=== PATIENT | female | born 1960 | race Caucasian/White ===

== ENCOUNTER 2016-09-12 10:44 | Emergency (ER) | payer OTHER | END 2016-09-12 17:52 | disposition critical access hospital (66) | LOC: ER 10:44 | DX: R06.02 Shortness of breath (principal); R60.1 Generalized edema; I50.9 Heart failure, unspecified; F32.9 Major depressive disorder, single episode, unspecified; F41.9 Anxiety disorder, unspecified; I16.9 Hypertensive crisis, unspecified; I12.9 Hypertensive chronic kidney disease with stage 1 through stage 4 chronic kidney disease, or unspecified chronic kidney disease; N18.9 Chronic kidney disease, unspecified; K21.9 Gastro-esophageal reflux disease without esophagitis; Z90.49 Acquired absence of other specified parts of digestive tract; Z79.899 Other long term (current) drug therapy; Z79.82 Long term (current) use of aspirin; Z79.4 Long term (current) use of insulin | CPT/HCPCS: 36415; 51702; 96365; 96366; 96375; 96376 ==

== ENCOUNTER 2016-09-12 11:39 | Inpatient (IN) | payer OTHER | END 2016-09-20 13:05 | disposition swing bed (61) | DRG 291 | LOC: ER 11:39 → ICU 17:53 | PROVIDERS: ADMIT Internal Medicine | DX: I13.0 Hypertensive heart and chronic kidney disease with heart failure and stage 1 through stage 4 chronic kidney disease, or unspecified chronic kidney disease (principal); I50.33 Acute on chronic diastolic (congestive) heart failure; G93.40 Encephalopathy, unspecified; I16.1 Hypertensive emergency; N18.4 Chronic kidney disease, stage 4 (severe); B37.49 Other urogenital candidiasis; Z68.43 Body mass index [BMI] 50.0-59.9, adult; F41.9 Anxiety disorder, unspecified; F32.9 Major depressive disorder, single episode, unspecified; E78.5 Hyperlipidemia, unspecified; E83.42 Hypomagnesemia; E87.6 Hypokalemia; G47.33 Obstructive sleep apnea (adult) (pediatric); E66.01 Morbid (severe) obesity due to excess calories; R60.1 Generalized edema; E11.9 Type 2 diabetes mellitus without complications; E03.9 Hypothyroidism, unspecified; K21.9 Gastro-esophageal reflux disease without esophagitis; M10.9 Gout, unspecified; Z90.49 Acquired absence of other specified parts of digestive tract; Z79.84 Long term (current) use of oral hypoglycemic drugs; Z79.82 Long term (current) use of aspirin; Z79.4 Long term (current) use of insulin; Z79.899 Other long term (current) drug therapy; Z87.891 Personal history of nicotine dependence; Z82.49 Family history of ischemic heart disease and other diseases of the circulatory system; Z83.3 Family history of diabetes mellitus; M35.3 Polymyalgia rheumatica; M25.50 Pain in unspecified joint; M54.5 Low back pain; G89.29 Other chronic pain | CPT/HCPCS: 36415; 87502; 90653; 97162-GP; 97166; J0360; J1644; J1940 ==

== ENCOUNTER 2016-09-20 08:26 | Inpatient (IN) | payer OTHER ==
[2016-09-24] MEDS ORDERED: NOVOLOG1 UNIT/0.0 SQ ×2 (11:14)
[2016-09-24] MEDS ORDERED: ZOLOFT50 MG PO (11:14)
[2016-09-24] MEDS ORDERED: CLONIDINE HCL0.1 MG PO (11:15)
[2016-09-24] MEDS ORDERED: LANTUS100 UNIT/1 SQ (11:15)
[2016-09-24] MEDS ORDERED: GLUCOTROL10 MG PO (11:15)
[2016-09-24] MEDS ORDERED: COREG25 MG PO (11:15)
[2016-09-24] MEDS ORDERED: SYNTHROID200 MCG PO (11:16)
[2016-09-24] MEDS ORDERED: MIRTAZAPINE15 MG PO (11:16)
[2016-09-24] MEDS ORDERED: NORVASC10 MG PO (11:16)
[2016-09-24] MEDS ORDERED: ALLOPURINOL300 MG PO (11:16)
[2016-09-24] MEDS ORDERED: ZOFRAN4 MG PO (11:17)
[2016-09-24] MEDS ORDERED: ZETIA10 MG PO (11:17)
[2016-09-24] MEDS ORDERED: FISH OIL 1,0001 EAC3 PO (11:17)
[2016-09-24] MEDS ORDERED: ASPIRIN EC325 MG PO (11:18)
[2016-09-24] MEDS ORDERED: ALDACTONE100 MG PO (11:18)
[2016-09-24] MEDS ORDERED: ACETAMINOPHEN325 MG PO (11:18)
[2016-09-24] MEDS ORDERED: HYDRALAZINE HC100 MG PO (11:19)
[2016-09-24] MEDS ORDERED: CRESTOR10 MG PO (11:19)
[2016-09-24] MEDS ORDERED: DEMADEX20 MG PO (11:20)
[2016-09-24] MEDS ORDERED: POLYETHYLENE GL17 GM PO (11:20)
== END 2016-09-24 13:37 | disposition home or self-care (01) | DRG 291 ==
LOC: SWI 08:26
PROVIDERS: ADMIT Internal Medicine
DX: I13.0 Hypertensive heart and chronic kidney disease with heart failure and stage 1 through stage 4 chronic kidney disease, or unspecified chronic kidney disease (principal); I50.33 Acute on chronic diastolic (congestive) heart failure; N18.4 Chronic kidney disease, stage 4 (severe); Z68.42 Body mass index [BMI] 45.0-49.9, adult; E11.22 Type 2 diabetes mellitus with diabetic chronic kidney disease; E03.9 Hypothyroidism, unspecified; E66.9 Obesity, unspecified; K21.9 Gastro-esophageal reflux disease without esophagitis; F41.9 Anxiety disorder, unspecified; F32.9 Major depressive disorder, single episode, unspecified; M10.9 Gout, unspecified; Z90.49 Acquired absence of other specified parts of digestive tract; Z79.82 Long term (current) use of aspirin; Z79.84 Long term (current) use of oral hypoglycemic drugs; Z79.4 Long term (current) use of insulin; Z79.899 Other long term (current) drug therapy; Z82.49 Family history of ischemic heart disease and other diseases of the circulatory system; Z83.3 Family history of diabetes mellitus; G47.33 Obstructive sleep apnea (adult) (pediatric); E83.42 Hypomagnesemia; E87.70 Fluid overload, unspecified; E78.5 Hyperlipidemia, unspecified
CPT/HCPCS: 97162-GP; J1644

== ENCOUNTER 2016-09-30 16:13 | Inpatient (IN) | payer OTHER ==
[~2016-09-30 16:13] MED LIST: ACETAMINOPHEN325 MG PO; ALDACTONE100 MG PO; ALLOPURINOL300 MG PO; ASPIRIN EC325 MG PO; CLONIDINE HCL0.1 MG PO; COREG25 MG PO; CRESTOR10 MG PO; DEMADEX20 MG PO; FISH OIL 1,0001 EAC3 PO; GLUCOTROL10 MG PO; HYDRALAZINE HC100 MG PO; LANTUS100 UNIT/1 SQ; MIRTAZAPINE15 MG PO; NORVASC10 MG PO; NOVOLOG1 UNIT/0.0 SQ; POLYETHYLENE GL17 GM PO; SYNTHROID200 MCG PO; ZETIA10 MG PO; ZOFRAN4 MG PO; ZOLOFT50 MG PO
[2016-10-05] MEDS ORDERED: ZOLOFT100 MG PO (10:06)
[2016-10-05] MEDS ORDERED: NOVOLOG1 UNIT/0.0 SQ ×2 (10:06)
[2016-10-05] MEDS ORDERED: GLUCOTROL10 MG PO (10:07)
[2016-10-05] MEDS ORDERED: COREG25 MG PO (10:11)
[2016-10-05] MEDS ORDERED: CATAPRES0.1 MG PO (10:11)
[2016-10-05] MEDS ORDERED: LANTUS100 UNIT/1 SQ (10:11)
[2016-10-05] MEDS ORDERED: ALLOPURINOL300 MG PO (10:12)
[2016-10-05] MEDS ORDERED: SYNTHROID200 MCG PO (10:13)
[2016-10-05] MEDS ORDERED: ZOFRAN4 MG PO (10:14)
[2016-10-05] MEDS ORDERED: ZETIA10 MG PO (10:14)
[2016-10-05] MEDS ORDERED: ACETAMINOPHEN325 MG PO (10:14)
[2016-10-05] MEDS ORDERED: CRESTOR10 MG PO (10:15)
[2016-10-05] MEDS ORDERED: HYDRALAZINE HC100 MG PO (10:15)
[2016-10-05] MEDS ORDERED: ASPIRIN EC81 MG PO (10:15)
[2016-10-05] MEDS ORDERED: DEMADEX20 MG PO (10:16)
[2016-10-05] MEDS ORDERED: POLYETHYLENE GL17 GM PO (10:16)
[2016-10-05] MEDS ORDERED: VISTARIL25 MG PO (10:16)
[2016-10-05] MEDS ORDERED: PHENERGAN25 MG RC (10:17)
[2016-10-05] MEDS ORDERED: K-DUR20 MEQ PO (10:17)
[2016-10-05] MEDS ORDERED: CARAFATE1 GM PO (10:17)
[2016-10-05] MEDS ORDERED: MAGOX 400400 MG PO (10:18)
[2016-10-05] MEDS ORDERED: REGLAN10 MG PO (10:18)
[2016-10-05] MEDS ORDERED: PROTONIX40 MG PO (10:26)
[2016-10-05] MEDS ORDERED: NORVASC10 MG PO (10:26)
[2016-10-05] MEDS ORDERED: HYDROCHLOROTHIA25 MG PO (10:27)
== END 2016-10-05 12:36 | disposition home or self-care (01) | DRG 291 ==
LOC: ER 16:13 → MED 19:41
PROVIDERS: ADMIT Internal Medicine
DX: I13.0 Hypertensive heart and chronic kidney disease with heart failure and stage 1 through stage 4 chronic kidney disease, or unspecified chronic kidney disease (principal); I50.33 Acute on chronic diastolic (congestive) heart failure; I16.1 Hypertensive emergency; N18.4 Chronic kidney disease, stage 4 (severe); Z68.42 Body mass index [BMI] 45.0-49.9, adult; A08.4 Viral intestinal infection, unspecified; E86.0 Dehydration; E11.22 Type 2 diabetes mellitus with diabetic chronic kidney disease; K29.70 Gastritis, unspecified, without bleeding; E11.43 Type 2 diabetes mellitus with diabetic autonomic (poly)neuropathy; K31.84 Gastroparesis; R74.8 Abnormal levels of other serum enzymes; F41.9 Anxiety disorder, unspecified; F32.9 Major depressive disorder, single episode, unspecified; D35.00 Benign neoplasm of unspecified adrenal gland; E03.9 Hypothyroidism, unspecified; E66.9 Obesity, unspecified; K21.9 Gastro-esophageal reflux disease without esophagitis; M10.9 Gout, unspecified; G47.33 Obstructive sleep apnea (adult) (pediatric); Z90.49 Acquired absence of other specified parts of digestive tract; Z82.49 Family history of ischemic heart disease and other diseases of the circulatory system; Z83.3 Family history of diabetes mellitus; R11.2 Nausea with vomiting, unspecified; E87.6 Hypokalemia; Z79.84 Long term (current) use of oral hypoglycemic drugs; Z79.82 Long term (current) use of aspirin; Z79.4 Long term (current) use of insulin; Z79.899 Other long term (current) drug therapy
CPT/HCPCS: 36415; 83835; 93976; 97162-GP; 97165; J0360; J1644; J2060; J2550; J2765

== ENCOUNTER 2016-09-30 16:13 | Emergency (ER) | payer OTHER | END 2016-09-30 19:40 | disposition critical access hospital (66) | LOC: ER 16:13 | DX: I13.0 Hypertensive heart and chronic kidney disease with heart failure and stage 1 through stage 4 chronic kidney disease, or unspecified chronic kidney disease (principal); N18.9 Chronic kidney disease, unspecified; I50.9 Heart failure, unspecified; R11.2 Nausea with vomiting, unspecified; E11.22 Type 2 diabetes mellitus with diabetic chronic kidney disease; K21.9 Gastro-esophageal reflux disease without esophagitis; F41.9 Anxiety disorder, unspecified; E66.9 Obesity, unspecified; Z68.42 Body mass index [BMI] 45.0-49.9, adult; Z79.899 Other long term (current) drug therapy; Z79.4 Long term (current) use of insulin; Z79.82 Long term (current) use of aspirin; Z90.49 Acquired absence of other specified parts of digestive tract; Z99.81 Dependence on supplemental oxygen | CPT/HCPCS: 36415; 96374; 96375; 96376; J0360 ==